=== PATIENT | female | born 1970 | race Native Hawaiian/Other Pacific Islander ===

== ENCOUNTER 2016-08-17 00:18 | Emergency (ER) | payer OTHER ==
[~2016-08-17] VITALS: Ht 157.5 cm; Wt 79.4 kg
[~2016-08-17 00:18] MED LIST: CYCL10TA35 PO; TRAZODONE300 MG PO
== END 2016-08-17 02:03 | disposition home or self-care (01) ==
LOC: ED 00:18
DX: S09.90XA Unspecified injury of head, initial encounter (principal); W22.8XXA Striking against or struck by other objects, initial encounter; Y92.098 Other place in other non-institutional residence as the place of occurrence of the external cause
CPT/HCPCS: 99282